=== PATIENT | female | born 1985 | race Caucasian/White ===

== ENCOUNTER 2023-02-26 17:20 | Emergency (ER) | payer BC ==
[2023-02-26 17:53] LABS: BASOPHILS ABSOLUTE AUTO 0.03 K/uL (0.00-0.20); BASOPHILS PERCENT AUTO 0.3 % (0.0-2.0); EOSINOPHILS ABSOLUTE AUTO 0.15 K/uL (0.00-0.50); EOSINOPHILS PERCENT AUTO 1.7 % (0.0-5.0); HEMATOCRIT 41.5 % (34.0-46.0); HEMOGLOBIN 15.2 g/dL (11.7-15.5); LYMPHOCYTES ABSOLUTE AUTO 2.84 K/uL (0.50-3.50); LYMPHOCYTES PERCENT AUTO 32.5 % (10.0-50.0); MEAN CORPUSCULAR HEMOGLOBIN 31.4 pg (28.2-33.3); MEAN CORPUSCULAR HGB CONC 36.6 g/dL (31.7-36.0); MEAN CORPUSCULAR VOLUME 85.7 fL (84.0-98.0); MONOCYTES ABSOLUTE AUTO 0.78 K/uL (0.00-1.00); MONOCYTES PERCENT AUTO 8.9 % (2.0-14.0); NEUTROPHILS ABSOLUTE AUTO 4.94 K/uL (1.40-7.00); NEUTROPHILS PERCENT AUTO 56.6 % (45.0-80.0); PLATELET COUNT,PLT 214 K/uL (150-350); RED BLOOD CELL COUNT 4.84 M/uL (3.77-5.09); RED CELL DISTRIBUTION WIDTH 11.7 % (11.2-14.1); WHITE BLOOD CELL COUNT,WBC 8.7 K/uL (4.0-10.2)
[2023-02-26 18:16] LABS: HEMOGLOBIN A1C 8.7 % (4.3-5.7)
[2023-02-26 18:27] LABS: ALANINE AMINOTRANSFERASE,ALT 26 U/L (12-78); ALBUMIN 3.9 g/dL (3.4-5.0); ALKALINE PHOSPHATASE 74 IU/L (46-116); ASPARTATE AMNIOTRANSFERASE,AST 13 U/L (15-37); BILIRUBIN TOTAL 0.4 mg/dL (0.2-1.0); BLOOD UREA NITROGEN,BUN 20 mg/dL (7-18); CALCIUM 8.6 mg/dL (8.5-10.1); CARBON DIOXIDE,CO2 23.8 mmol/L (21.0-32.0); CHLORIDE,CL 97 mmol/L (98-107); CREATININE 1.19 mg/dL (0.51-1.17); GLUCOSE RANDOM 387 mg/dL (70-99); MAGNESIUM 1.9 mg/dL (1.8-2.4); POTASSIUM,K 4.2 mmol/L (3.5-5.1); PROTEIN TOTAL,TP 7.5 g/dL (6.4-8.2); SODIUM,NA 131 mmol/L (136-145)
[2023-02-26 18:29] LABS: ANION GAP 14.4 meq/L (7-15); ESTIMATED GFR 60 mL/min (>=60)
[2023-02-26 18:30] LABS: APPEARANCE,URINE CLEAR; BILIRUBIN,URINE NEGATIVE (NEGATIVE); COLOR,URINE YELLOW; GLUCOSE,URINE >=1000 mg/dL (NEGATIVE); KETONES,URINE 15 mg/dL (NEGATIVE); LEUKOCYTE ESTERASE,URINE NEGATIVE (NEGATIVE); NITRITE,URINE NEGATIVE (NEGATIVE); OCCULT BLOOD,URINE MODERATE (NEGATIVE); PROTEIN,URINE NEGATIVE (NEGATIVE); UROBILINOGEN,URINE 0.2 E.U./dL (0.2-1.0)
[2023-02-26 18:40] LABS: BACTERIA,URINE NOT SEEN /HPF (NONE TO FEW); EPITHELIAL CELLS,URINE RARE /LPF; MUCUS,URINE NOT SEEN /LPF (NEGATIVE); RBC,URINE 20-30 /HPF; WBC,URINE 0-5 /HPF
[2023-02-26] MEDS ORDERED: Sodium Chloride 0.9% 1,000 ML IV ONE (18:51)
[2023-02-26] MEDS ORDERED: Insulin Regular, Human 100 Units/ML 3 ML Vial SUBCUT ONE (18:55)
[2023-02-26] MEDS ORDERED: Glucagon,Human Recombinant 1 MG Vial IM PRN (18:55)
[2023-02-26] MEDS ORDERED: 50% Dextrose in Water 50 ML Syringe IVPUSH PRN (18:55)
[2023-02-26] MEDS ORDERED: metFORMIN 500 MG Tab PO ONE (20:43)
== END 2023-02-26 21:15 | disposition home or self-care (01) ==
LOC: LL.ED 17:20
DX: E11.9 Type 2 diabetes mellitus without complications (principal); Z88.7 Allergy status to serum and vaccine
CPT/HCPCS: 36415; 74022; 80053; 81001; 82947; 83036; 83605; 83735; 85025; 96360; 99283; 99285-25; A9270-GY; J1815-GY; J7030